=== PATIENT | male | born 1970 | race Caucasian/White ===

== ENCOUNTER 2019-08-24 22:59 | Emergency (ER) | payer OTHER | END 2019-08-24 23:51 | disposition home or self-care (01) | LOC: ERS 22:59 | DX: K13.0 Diseases of lips (principal); I10 Essential (primary) hypertension; F17.210 Nicotine dependence, cigarettes, uncomplicated | CPT/HCPCS: 40800 ==

== ENCOUNTER 2021-08-21 22:35 | Observation (INO) | payer OTHER ==
[2021-08-21] MEDS ORDERED: Nitroglycerin 2% Ointment 1 INCH/1 GM Packet ONE (23:29)
[2021-08-21] MEDS ORDERED: Aspirin 325 MG TAB ONE (23:29)
[2021-08-21 23:48] LABS: Hemoglobin 14.7 g/dL (14.0-18.0); Mean Corpuscular HGB CONC 33.7 g/dL (32.0-36.0); Mean Corpuscular Hemoglobin 32.8 pg (27.0-31.0); Mean Corpuscular Volume 97.6 fL (78.0-98.0); Mean Platelet Volume 8.1 fL (7.4-10.4); Platelet Count 170 thou/uL (130-400); RBC Distribution Width 11.4 % (11.5-14.5); Red Blood Cell (RBC) Count 4.49 mill/uL (4.70-6.10); White Blood Cell (WBC) Count 9.8 thou/uL (4.8-10.8)
[2021-08-21 23:55] LABS: ALT (SGPT) 61 U/L (8-55); AST (SGOT) 30 U/L (5-34); Albumin 4.5 g/dL (3.5-5.0); Alkaline Phosphatase 103 U/L (40-110); Anion Gap 15 mmol/L (10-20); BUN (Urea Nitrogen) 11 mg/dL (8.9-20.6); Bilirubin, Total 0.6 mg/dL (0.2-1.2); Calc. Creatinine Clearance 0 mL/min (70-130); Calcium 9.8 mg/dL (7.8-10.44); Carbon Dioxide 22 mmol/L (22-29); Chloride 101 mmol/L (98-107); Globulin 3.3 g/dL (2.4-3.5); Glucose 115 mg/dL (70-105); Protein, Total 7.8 g/dL (6.0-8.3); Sodium 134 mmol/L (136-145)
[2021-08-22 00:08] LABS: Band 1 % (5-11); Eosinophils 9 % (0-10); Lymphocytes 31 % (21-51); MDiff Complete? YES; Monocytes 4 % (0-10); Neutrophil 55 % (42-75)
[2021-08-22 03:39] LABS: Troponin I 0.061 ng/mL (< 0.028)
[2021-08-22 04:18] VITALS: BMI 27.6
[2021-08-22] MEDS ORDERED: Morphine 4 MG/ML VIAL SLOW IVP PRN (05:01)
[2021-08-22] MEDS ORDERED: Nitroglycerin 0.4 MG TAB (25 Tab Bottle) SL PRN (05:01)
[2021-08-22] MEDS ORDERED: Enoxaparin Sodium 80 MG/0.8 ML SYRINGE SC SCH ×2 (05:15→21:00)
[2021-08-22 05:50] LABS: Troponin I Less than 0.010 ng/mL (< 0.028)
[2021-08-22] MEDS ORDERED: Ondansetron PF 4 MG/2 ML Vial IVP PRN (08:06)
[2021-08-22] MEDS ORDERED: Bisacodyl 5 MG TAB PO PRN (08:06)
[2021-08-22] MEDS ORDERED: Acetaminophen 325 MG TAB PO PRN (08:06)
[2021-08-22] MEDS ORDERED: HYDROcodone/Acetaminophen 5/325 mg Tablet PO PRN (08:06)
[2021-08-22] MEDS ORDERED: Guaifenesin DM 100-10/5 ML UDCUP PO PRN (08:06)
[2021-08-22] MEDS ORDERED: Ondansetron ODT 4 MG TAB PO PRN (08:06)
[2021-08-22] MEDS ORDERED: Calcium Carbonate 500 MG ChewTAB PO PRN (08:06)
[2021-08-22] MEDS ORDERED: Senokot S 8.6-50 MG TAB PO PRN (08:06)
[2021-08-22] MEDS ORDERED: Zolpidem Tartrate 5 MG TAB PO PRN (08:06)
[2021-08-22] MEDS ORDERED: Loperamide HCl 2 MG CAP PO PRN (08:06)
[2021-08-22] MEDS: Famotidine 20 MG TAB PO SCH ×2 (08:41→20:27)
[2021-08-22] MEDS: Aspirin 81 mg Enteric Coated Tablet PO SCH (08:41)
[2021-08-22] MEDS: Lisinopril 10 MG TAB PO SCH (08:41)
[2021-08-22 12:13] LABS: SARS-CoV-2 PCR by NAA Not Detected (NotDetected)
[2021-08-22] MEDS ORDERED: Atorvastatin Calcium 40 MG TAB PO SCH (21:00)
[2021-08-23 04:04] LABS: #Basophils 0.1 thou/uL (0.0-0.2); #Eosinphils 1.2 thou/uL (0.0-0.7); #Lymphocytes 2.8 thou/uL (1.20-3.40); #Monocytes 0.7 thou/uL (0.11-0.59); #Neutrophils 3.5 thou/uL (1.40-6.50); %Basophils 1.1 % (0.0-1.0); %Eosinophils 14.1 % (0.0-10.0); %Lymphocytes 34.6 % (21.0-51.0); %Monocytes 8.1 % (0.0-10.0); %Neutrophils 42.1 % (42.0-75.0); Hemoglobin 14.8 g/dL (14.0-18.0); Mean Corpuscular HGB CONC 34.4 g/dL (32.0-36.0); Mean Corpuscular Hemoglobin 33.6 pg (27.0-31.0); Mean Corpuscular Volume 97.7 fL (78.0-98.0); Platelet Count 297 thou/uL (130-400); RBC Distribution Width 11.5 % (11.5-14.5); Red Blood Cell (RBC) Count 4.39 mill/uL (4.70-6.10); White Blood Cell (WBC) Count 8.2 thou/uL (4.8-10.8)
[2021-08-23 04:22] LABS: Anion Gap 13 mmol/L (10-20); BUN (Urea Nitrogen) 14 mg/dL (8.9-20.6); Calc. Creatinine Clearance 116 mL/min (70-130); Calcium 9.5 mg/dL (7.8-10.44); Carbon Dioxide 25 mmol/L (22-29); Chloride 104 mmol/L (98-107); Glucose 131 mg/dL (70-105); Potassium 3.6 mmol/L (3.5-5.1); Sodium 138 mmol/L (136-145)
[2021-08-23 08:19] VITALS: TEMP 97.7
[2021-08-23] MEDS ORDERED: Enoxaparin Sodium 30 MG/0.3 ML SYRINGE SC SCH (09:00)
[2021-08-23] MEDS: Famotidine 20 MG TAB PO SCH (09:17)
[2021-08-23] MEDS: Lisinopril 10 MG TAB PO SCH (09:17)
[2021-08-23 09:18] VITALS: BP 153/84
[2021-08-23] MEDS: Aspirin 81 mg Enteric Coated Tablet PO SCH (09:18)
[2021-08-23] MEDS ORDERED: hydrOXYzine 25 MG TAB PO SCH (09:30)
[2021-08-23] MEDS ORDERED: Lidocaine 2% Viscous Solution 10 ML, Aluminum & Magnesium Hydroxide 30 ML SSW SCH (09:30)
[2021-08-23] MEDS ORDERED: Labetalol HCl 100 MG/20 ML VIAL ONE (10:51)
[2021-08-24] MEDS ORDERED: Enoxaparin Sodium 40 MG/0.4 ML SYRINGE SC SCH (09:00)
== END 2021-08-23 14:37 | disposition home or self-care (01) ==
LOC: ERS 22:35 → 2SW 08-22 01:02
PROVIDERS: ADMIT Student in an Organized Health Care Education/Training Program; ATTEND Internal Medicine
PROC: 0DJ08ZZ Inspection of Upper Intestinal Tract, Via Natural or Artificial Opening Endoscopic (ICD-10-PCS; principal; 2021-08-23)
DX: R07.89 Other chest pain (principal); I10 Essential (primary) hypertension; E78.5 Hyperlipidemia, unspecified; F17.220 Nicotine dependence, chewing tobacco, uncomplicated; F17.290 Nicotine dependence, other tobacco product, uncomplicated; E11.9 Type 2 diabetes mellitus without complications; K76.0 Fatty (change of) liver, not elsewhere classified; E66.9 Obesity, unspecified; Z68.27 Body mass index [BMI] 27.0-27.9, adult; Z79.82 Long term (current) use of aspirin; Z79.899 Other long term (current) drug therapy
CPT/HCPCS: 36415; 71045; 76705; 80048; 80053; 84484; 85025; 93005; 93010; 93017; 94760; 96372; 96374; G0378; J1650; J2270; U0003; U0005

== ENCOUNTER 2021-08-23 17:41 | Inpatient (IN) | payer OTHER ==
[~2021-08-23 17:41] MED LIST: PROPOFOL 200 MG/20 ML VIAL ONE
[2021-08-23 18:32] LABS: #Eosinphils 0.2 thou/uL (0.0-0.7); #Lymphocytes 0.7 thou/uL (1.20-3.40); #Monocytes 0.5 thou/uL (0.11-0.59); #Neutrophils 6.2 thou/uL (1.40-6.50); %Eosinophils 2.8 % (0.0-10.0); %Lymphocytes 9.4 % (21.0-51.0); %Monocytes 6.4 % (0.0-10.0); %Neutrophils 81.4 % (42.0-75.0); Hemoglobin 14.3 g/dL (14.0-18.0); Mean Corpuscular HGB CONC 33.1 g/dL (32.0-36.0); Mean Corpuscular Hemoglobin 32.7 pg (27.0-31.0); Mean Corpuscular Volume 98.7 fL (78.0-98.0); Mean Platelet Volume 6.3 fL (7.4-10.4); Platelet Count 275 thou/uL (130-400); RBC Distribution Width 11.5 % (11.5-14.5); Red Blood Cell (RBC) Count 4.37 mill/uL (4.70-6.10); White Blood Cell (WBC) Count 7.6 thou/uL (4.8-10.8)
[2021-08-23 18:52] LABS: ALT (SGPT) 560 U/L (8-55); AST (SGOT) 585 U/L (5-34); Albumin 4.3 g/dL (3.5-5.0); Alkaline Phosphatase 161 U/L (40-110); Anion Gap 12 mmol/L (10-20); BUN (Urea Nitrogen) 12 mg/dL (8.9-20.6); Bilirubin, Total 2.4 mg/dL (0.2-1.2); Calc. Creatinine Clearance 0 mL/min (70-130); Calcium 9.2 mg/dL (7.8-10.44); Carbon Dioxide 25 mmol/L (22-29); Chloride 104 mmol/L (98-107); Glucose 164 mg/dL (70-105); Lipase 28 U/L (8-78); Potassium 3.8 mmol/L (3.5-5.1); Protein, Total 7.3 g/dL (6.0-8.3); Sodium 137 mmol/L (136-145)
[2021-08-23] MEDS ORDERED: Aspirin Chewable 81 MG TAB ONE (18:56)
[2021-08-23 19:34] LABS: ALT (SGPT) 564 U/L (8-55); AST (SGOT) 585 U/L (5-34); Albumin 4.3 g/dL (3.5-5.0); Alkaline Phosphatase 161 U/L (40-110); Bilirubin, Direct 1.5 mg/dL (0.1-0.3); Bilirubin, Total 2.5 mg/dL (0.2-1.2); Protein, Total 7.3 g/dL (6.0-8.3)
[2021-08-23 23:14] VITALS: BMI 29.5
[2021-08-23] MEDS ORDERED: Acetaminophen 325 MG TAB PO PRN (23:15)
[2021-08-23] MEDS ORDERED: Sodium Chloride 0.9% 1,000 ML IV SCH (23:15)
[2021-08-23] MEDS ORDERED: Ondansetron ODT 4 MG TAB SL PRN (23:15)
[2021-08-23] MEDS ORDERED: Ondansetron PF 4 MG/2 ML Vial IVP PRN (23:15)
[2021-08-23 23:22] LABS: HBSAg Index 0.21 S/CO (0-0.99); Hep A IgM AB Non-Reactive (NonReactive); Hep A IgM S/CO 0.39 S/CO (0-0.79); Hep B Surf Ag Non-Reactive S/CO (NonReactive); Hep C IgG Ab Non-Reactive (NonReactive); Hep C Index 0.35 S/CO (0-0.79); Hepatitis B Core IgM Abs Non-Reactive (NonReactive)
[2021-08-23] MEDS ORDERED: Acetaminophen 650 MG Suppository PR PRN (23:48)
[2021-08-24 04:20] LABS: #Eosinphils 0.6 thou/uL (0.0-0.7); #Lymphocytes 1.5 thou/uL (1.20-3.40); #Monocytes 0.6 thou/uL (0.11-0.59); #Neutrophils 2.8 thou/uL (1.40-6.50); %Basophils 0.8 % (0.0-1.0); %Eosinophils 10.4 % (0.0-10.0); %Lymphocytes 27.4 % (21.0-51.0); %Monocytes 10.1 % (0.0-10.0); %Neutrophils 51.3 % (42.0-75.0); Hemoglobin 14.3 g/dL (14.0-18.0); Mean Corpuscular HGB CONC 32.2 g/dL (32.0-36.0); Mean Corpuscular Hemoglobin 31.9 pg (27.0-31.0); Mean Corpuscular Volume 99.1 fL (78.0-98.0); Mean Platelet Volume 6.3 fL (7.4-10.4); Platelet Count 280 thou/uL (130-400); RBC Distribution Width 11.8 % (11.5-14.5); Red Blood Cell (RBC) Count 4.48 mill/uL (4.70-6.10); White Blood Cell (WBC) Count 5.4 thou/uL (4.8-10.8)
[2021-08-24 04:41] LABS: Anion Gap 11 mmol/L (10-20); BUN (Urea Nitrogen) 8 mg/dL (8.9-20.6); Calc. Creatinine Clearance 115 mL/min (70-130); Calcium 9.2 mg/dL (7.8-10.44); Carbon Dioxide 25 mmol/L (22-29); Chloride 108 mmol/L (98-107); Glucose 113 mg/dL (70-105); Potassium 3.8 mmol/L (3.5-5.1); Sodium 140 mmol/L (136-145)
[2021-08-24] MEDS ORDERED: Nitroglycerin 0.4 MG TAB (25 Tab Bottle) SL PRN (06:41)
[2021-08-24] MEDS: Enoxaparin Sodium 40 MG/0.4 ML SYRINGE SC SCH (08:24)
[2021-08-24] MEDS ORDERED: Aspirin Chewable 81 MG TAB PO SCH (09:00)
[2021-08-24 11:15] LABS: HBSAg Index 0.23 S/CO (0-0.99); Hep A IgM AB Non-Reactive (NonReactive); Hep B Surf Ag Non-Reactive S/CO (NonReactive); Hep C IgG Ab Non-Reactive (NonReactive); Hep C Index 0.32 S/CO (0-0.79); Hepatitis B Core IgM Abs Non-Reactive (NonReactive); PSA-Symptomatic (DIAGNOSTIC) 0.81 ng/mL (0-4.0)
[2021-08-24] MEDS ORDERED: hydrALAZINE 20 MG/ML VIAL SLOW IVP PRN (12:33)
[2021-08-24 13:15] LABS: Bacteria/HPF None Seen HPF (None Seen); Bilirubin Negative (Negative); Blood, Urine Negative (Negative); Clarity Clear (Clear); Glucose, Urine (Dipstick) Normal (Negative); Ketone, Urine Negative (Negative); Leukocyte Negative Leu/uL (Negative); Nitrite Negative (Negative); Protein, Urine (Dipstick) Negative (Neg-Trace); RBC/HPF 0-3 HPF (0-3); Specific Gravity, Urine 1.017 (1.002-1.036); Squamous Epithelial None Seen HPF (0-3); Urobilinogen Normal mg/dL (Less than 2); WBC/HPF 0-3 HPF (0-3)
[2021-08-24] MEDS ORDERED: Calcium Carbonate 500 MG ChewTAB PO PRN (19:38)
[2021-08-24] MEDS ORDERED: hydrOXYzine 25 MG TAB PO PRN (19:39)
[2021-08-24] MEDS ORDERED: Lisinopril 10 MG TAB PO SCH (19:45)
[2021-08-24] MEDS: Famotidine 20 MG TAB PO SCH (20:09)
[2021-08-25 05:02] LABS: ALT (SGPT) 382 U/L (8-55); AST (SGOT) 138 U/L (5-34); Albumin 4.2 g/dL (3.5-5.0); Alkaline Phosphatase 189 U/L (40-110); Bilirubin, Direct 0.4 mg/dL (0.1-0.3); Bilirubin, Total 0.9 mg/dL (0.2-1.2); Iron 88 ug/dL (65-175); Iron Binding Capacity, Total 306 mcg/dL (261-462); Protein, Total 7.1 g/dL (6.0-8.3)
[2021-08-25 05:20] LABS: Ferritin 623.26 ng/mL (22-322)
[2021-08-25 05:21] LABS: PSA-Asymptomatic (SCREENING) 0.82 ng/mL (0-4.0)
[2021-08-25] MEDS: Enoxaparin Sodium 40 MG/0.4 ML SYRINGE SC SCH (08:38)
[2021-08-25] MEDS: Famotidine 20 MG TAB PO SCH ×2 (08:38→20:20)
[2021-08-25] MEDS: Aspirin 81 mg Enteric Coated Tablet PO SCH (08:38)
[2021-08-25 09:17] LABS: % Free PSA 21.1 % (.); Total PSA 0.9 ng/mL (0.0-4.0)
[2021-08-25] MEDS ORDERED: Lisinopril 10 MG TAB PO SCH (21:00)
[2021-08-26 05:12] LABS: ALT (SGPT) 304 U/L (8-55); AST (SGOT) 102 U/L (5-34); Albumin 4.1 g/dL (3.5-5.0); Alkaline Phosphatase 182 U/L (40-110); Bilirubin, Direct 0.4 mg/dL (0.1-0.3); Bilirubin, Total 0.7 mg/dL (0.2-1.2); Protein, Total 7.2 g/dL (6.0-8.3)
[2021-08-26] MEDS: Enoxaparin Sodium 40 MG/0.4 ML SYRINGE SC SCH (08:29)
[2021-08-26] MEDS: Aspirin 81 mg Enteric Coated Tablet PO SCH (08:29)
[2021-08-26] MEDS: Famotidine 20 MG TAB PO SCH (08:29)
[2021-08-26 11:44] VITALS: BP 156/89; TEMP 97.9
[2021-08-28 12:14] LABS: ANA Symphony (Qualitative) Negative (Negative); ANA Symphony (Quantitative) 0.6 Ratio (< 0.7 Negative); EliA Vaculitis New Method **** NEW METHOD ****; Mitochondrial Ab 1.3 U/mL (<4 Negative); dsDNA IgG Antibody 1.2 IU/mL (<10 Negative)
== END 2021-08-26 13:45 | disposition home or self-care (01) | DRG 313 ==
LOC: ERS 17:41 → 2SW 20:56 → OBSVTOIN 08-26 12:53
PROVIDERS: ADMIT Student in an Organized Health Care Education/Training Program; ATTEND Internal Medicine
DX: R07.89 Other chest pain (principal); N28.9 Disorder of kidney and ureter, unspecified; N42.89 Other specified disorders of prostate; R74.01 Elevation of levels of liver transaminase levels; I10 Essential (primary) hypertension; K76.0 Fatty (change of) liver, not elsewhere classified; Z79.82 Long term (current) use of aspirin; Z79.899 Other long term (current) drug therapy
CPT/HCPCS: 36415; 71045; 74177; 74181; 78227; 80048; 80074; 80076; 81001; 82390; 82728; 83516; 83540; 83550; 83615; 83690; 84153; 84154; 84484; 85025; 86015; 86038; 86225; 93005; 94760; 96372; A9537; G0103; G0378; J0360; J1650; J2704; J7050